=== PATIENT | female | born 1960 | race Caucasian/White ===

== ENCOUNTER 2021-05-04 17:07 | Emergency (ER) | payer MEDICARE, OTHER, MEDICAID ==
[2021-05-04] MEDS: Lidocaine 2% with EPINEPHrine 1:100,000 20 ML MDV INJECT ONE (19:19)
== END 2021-05-04 19:30 | disposition home or self-care (01) ==
LOC: LL.ED 17:07
DX: S01.512A Laceration without foreign body of oral cavity, initial encounter (principal); R79.1 Abnormal coagulation profile; K21.9 Gastro-esophageal reflux disease without esophagitis; E03.9 Hypothyroidism, unspecified; E66.9 Obesity, unspecified; Z91.048 Other nonmedicinal substance allergy status; Z88.1 Allergy status to other antibiotic agents; Z91.041 Radiographic dye allergy status; Z88.8 Allergy status to other drugs, medicaments and biological substances; Z79.899 Other long term (current) drug therapy
CPT/HCPCS: 12011; 99282-25; 99283